=== PATIENT | female | born 1955 | race Caucasian/White ===

== ENCOUNTER → 2017-03-29 | Outpatient (CLI) | payer OTHER ==
[~2017-03-29] MED LIST: ADVA100A INH; ALBU1AER INH; ALBUAER3 INH; AMLO5TAB2 PO; ASPI81TA21 PO; FEXO60TA PO; FLUT1INH INH; FLUT1SPR5 EACH NARE; LOSA25TA31 PO; OMEP20CA5 PO; OMEP20TA93 PO; OXYC1TAB63 PO
--- NOTE | 2017-03-29 11:34 | RADRPT ---
EXAM DATE/TIME: 03/29/2017 11:17 [facility] COMPARISON: No previous studies available for comparison. INDICATIONS : Evaluate for pneumonia, pneumonia, and communicable diseases. Pre-op Hysterectomy MEDICAL HISTORY : Hypertension. SURGICAL HISTORY : None. ENCOUNTER: Initial ACUITY: 1 day PAIN SCORE: 0/10 LOCATION: chest FINDINGS: PA and lateral views of the chest demonstrate the lungs to be symmetrically aerated without evidence of mass, infiltrate or effusion. The cardiomediastinal contours are unremarkable. Osseous structure s are intact. CONCLUSION: No acute disease. Giuseppe Bartlett Jr., MD on March 29, 2017 at 11:32 Board Certified Radiologist. This report was verified electronically.
[2017-03-29 11:55] LABS: AUTOMATED NEUTROPHIL # 5.7 TH/MM3 (1.8-7.7); BASOPHIL # 0.1 TH/MM3 (0-0.2); BASOPHIL % 0.8 % (0.0-2.0); EOSINOPHIL # 0.4 TH/MM3 (0-0.4); EOSINOPHIL % 4.5 % (0.0-4.0); HEMATOCRIT 45.1 % (35.0-46.0); HEMO FLAGS DIFF FINAL; LYMPH % 19.8 % (9.0-44.0); LYMPHOCYTE # 1.7 TH/MM3 (1.0-4.8); MEAN CORPUSCULAR HEMOGLOBIN 32.6 PG (27.0-34.0); MONO % 8.1 % (0.0-8.0); NEUT % 66.8 % (16.0-70.0); PLATELET COUNT 284 TH/MM3 (150-450); RED CELL DISTRIBUTION WIDTH 12.7 % (11.6-17.2); WHITE BLOOD COUNT 8.5 TH/MM3 (4.0-11.0)
[2017-03-29 12:06] LABS: APTT (PATIENT) 27.3 SEC (24.3-30.1); PROTHROMBIN TIME - PATIENT 10.7 SEC (9.8-11.6)
[2017-03-29 12:24] LABS: ANION GAP 7 MEQ/L (5-15); AST (GOT) 21 U/L (15-37); BICARBONATE 28.7 MEQ/L (21.0-32.0); BLOOD UREA NITROGEN 15 MG/DL (7-18); CHLORIDE 104 MEQ/L (98-107); GLOMERULAR FILTRATION RATE 66 ML/MIN (>89); GLUCOSE,FASTING 92 MG/DL (74-99); POTASSIUM 3.7 MEQ/L (3.5-5.1); SODIUM (NA) 140 MEQ/L (136-145)
[2017-03-29 12:27] LABS: ALKALINE PHOSPHATASE 102 U/L (45-117); ALT (GPT) 27 U/L (10-53); TOTAL BILIRUBIN ADULT 0.5 MG/DL (0.2-1.0)
--- NOTE | 2017-03-30 18:10 | EKG ---
Date Performed: 03/29/2017 Time Performed: 10:46:17 PTAGE: 62 years EKG: Sinus rhythm Since previous tracing, no significant change noted NORMAL ECG PREVIOUS TRACING : 12/18/2016 11.07.32 DOCTOR: Sharon Montalvo Interpretating Date/Time 03/30/2017 18:08:30
== END ==
LOC: CPRE 10:26
PROVIDERS: ATTEND Obstetrics & Gynecology Gynecologic Oncology
DX: Z01.812 Encounter for preprocedural laboratory examination (principal); Z01.811 Encounter for preprocedural respiratory examination; Z01.810 Encounter for preprocedural cardiovascular examination; C54.1 Malignant neoplasm of endometrium; I10 Essential (primary) hypertension
CPT/HCPCS: 36415; 71020; 80053; 85025; 85610; 85730; 93005

== ENCOUNTER 2017-04-05 05:06 | Observation (INO) | payer OTHER ==
[~2017-04-05] VITALS: Ht 167.6 cm; Wt 84.8 kg
[~2017-04-05 05:06] MED LIST changes: -OXYC1TAB63 PO
[2017-04-05] MEDS ORDERED: METOPROLOL TARTRATE 25 MG TAB PO PRN (05:45)
[2017-04-05] MEDS ORDERED: CHLORHEXIDINE GLUCONATE 2 % 1 PACK (2 CLOTHS) TOPICAL PRN (05:45)
[2017-04-05] MEDS ORDERED: SODIUM CHLORID 0.9% 500 ML IV PRN (05:45)
[2017-04-05] MEDS ORDERED: SODIUM CHLORIDE FLUSH PRN IV FLUSH (05:45)
[2017-04-05] MEDS ORDERED: ceFAZolin 2 GM PREMIX 50 ML IV SCH (05:45)
[2017-04-05] MEDS ORDERED: LACTATED RINGER'S 1000 ML IV PRN (05:45)
[2017-04-05] MEDS ORDERED: HEPARIN SODIUM - SQ 10,000 UNITS/ML VIAL SQ SCH (05:45)
[2017-04-05] MEDS ORDERED: POVIDONE IODINE 5% (ANTISEPSIS KIT) 4 APPLICATIONS EACH NARE PRN (05:45)
[2017-04-05] MEDS ORDERED: LIDOCAINE 1%/EPINEPHrine 1:100,000 SOLN 20 ML VIAL INFIL ONE (08:41)
[2017-04-05] MEDS ORDERED: SODIUM CHLORIDE FLUSH BID IV FLUSH SCH (09:00)
[2017-04-05] MEDS ORDERED: SUGAMMADEX SODIUM 200 MG/2 ML VIAL IV PUSH ONE ×2 (10:57)
[2017-04-05] MEDS ORDERED: METHYLENE BLUE 10 MG/ML VIAL OTHER ONE ×2 (11:05→11:24)
[2017-04-05] MEDS ORDERED: ceFAZolin INJ 1,000 MG VIAL IV ONE ×3 (11:41→12:00)
[2017-04-05] MEDS ORDERED: NORMOSOL R INJ 1,000 ML IV ONE (12:00)
[2017-04-05] MEDS ORDERED: PROPOFOL 200 MG/20 ML AMP IV ONE (12:00)
[2017-04-05] MEDS ORDERED: GLYCOPYRROLATE 1 MG/5 ML SYRINGE IV PUSH ONE (12:00)
[2017-04-05] MEDS ORDERED: MORPHINE SULFATE 4 MG/ML INJ IV ONE (12:00)
[2017-04-05] MEDS ORDERED: ePHEDrine/NS 25 MG/5 ML SYR IV ONE (12:00)
[2017-04-05] MEDS ORDERED: PHENYLEPH/NS 1000 MCG/10 ML SYR IV ONE (12:00)
[2017-04-05] MEDS ORDERED: ROCURONIUM INJ 50 MG/5 ML SYRINGE IV PUSH ONE (12:00)
[2017-04-05] MEDS ORDERED: ESMOLOL HCL 100 MG/10 ML VIAL IV ONE (12:00)
[2017-04-05] MEDS ORDERED: LACTATED RINGER'S 1000 ML INJ 2,000 ML IV ONE (12:00)
[2017-04-05] MEDS ORDERED: ONDANSETRON HCL 4 MG/2 ML VIAL IV PUSH ONE (12:00)
[2017-04-05] MEDS ORDERED: SODIUM CHLORIDE 0.9% 20 ML VIAL IV ONE (12:00)
[2017-04-05] MEDS ORDERED: DEXAMETHASONE SOD PHOS 4 MG/ML VIAL IV ONE (12:00)
[2017-04-05] MEDS ORDERED: LIDOCAINE HCL 1% PF 5 ML SYRINGE OTHER ONE (12:00)
[2017-04-05] MEDS ORDERED: METOPROLOL TARTRATE 5 MG/5 ML VIAL IV PUSH ONE (12:00)
[2017-04-05] MEDS ORDERED: PHENYLEPHRINE HCL 10 MG/ML VIAL IV ONE (12:00)
[2017-04-05] MEDS ORDERED: VECURONIUM BROMIDE 20 MG VIAL IV ONE (12:00)
[2017-04-05] MEDS ORDERED: SODIUM CHLORIDE 0.9% FLUSH 10 ML FLUSH IV FLUSH PRN (12:15)
[2017-04-05] MEDS ORDERED: LORazepam 0.5 MG TAB PO PRN (12:15)
[2017-04-05] MEDS ORDERED: ONDANSETRON HCL 4 MG/2 ML VIAL IVP PRN (12:15)
[2017-04-05] MEDS ORDERED: oxyCODONE/ACETAMINOPHEN 5 MG/325 MG TAB PO PRN (12:15)
[2017-04-05] MEDS ORDERED: diphenhydrAMINE HCL 25 MG CAP PO PRN (12:15)
[2017-04-05] MEDS ORDERED: *morphine SULFATE 8 MG/ML PERIprocedure ONLY ONE ×2 (12:40→15:14)
[2017-04-05] MEDS ORDERED: DO NOT ADM ANY ANTICOAGULANT DRUGS PRN (14:15)
[2017-04-05] MEDS: D5-1/2 NS + KCL 20 MEQ INJ 1,000 ML IV SCH (14:30)
[2017-04-05] MEDS: KETOROLAC TROMETHAMINE 30 MG/ML (IVP) VIAL IVP SCH ×2 (14:59→21:37)
[2017-04-05] MEDS: RESP: ALBUTEROL 2.5 MG/3 ML NEB (SCH) NEB ×3 (15:00→20:05)
[2017-04-05] MEDS ORDERED: LORATADINE 10 MG TAB PO PRN (15:00)
[2017-04-05 15:50] VITALS: BP 109/68; PULSE 80; RESP 20; TEMP 98.4; O2SAT 96
--- NOTE | 2017-04-05 15:56 | PD.ONC.PN ---
Subjective Subjective Remarks post op note pt seen in PACU no complaints awaiting bed states pain is controlled and she is going to start taking in ice chips Objective Data Date Time Temp Pulse Resp B/P (MAP) Pulse Ox O2 Delivery O2 Flow Rate FiO2 04/05/17 14:30 90 12 115/62 (79) 97 Nasal Cannula 2 04/05/17 13:46 14 04/05/17 13:30 98.2 87 12 110/56 (74) 95 Nasal Cannula 2 04/05/17 13:00 89 14 119/59 (79) 95 Nasal Cannula 2 04/05/17 12:45 88 16 119/59 (79) 96 Nasal Cannula 2 04/05/17 12:30 96 16 123/62 (82) 97 Nasal Cannula 2 04/05/17 12:15 100 16 125/68 (87) 97 Nasal Cannula 2 04/05/17 12:14 98.2 101 18 121/60 (80) 97 Nasal Cannula 2 04/05/17 06:36 98.3 75 20 125/82 (96) 99 04/05/17 04/05/17 04/05/17 07:00 15:00 23:00 Intake Total 1800 ml 200 ml Output Total 500 ml 250 ml Balance 1300 ml -50 ml Administered Medications Medications (Trade) Dose Ordered Sig/Elysia Route PRN Reason Start Time Stop Time Status Last Admin Dose Admin Lactated Ringer's 1,000 ml @ 30 mls/hr Q24H PRN IV SEE LABEL COMMENTS 04/05/17 05:45 04/08/17 05:44 04/05/17 06:15 Povidone Iodine (Betadine 5% Antisepsis Kit) 1 applic PAINTER BARREL PRN EACH NARE SEE LABEL COMMENTS 04/05/17 05:45 04/08/17 05:44 04/05/17 06:45 Chlorhexidine Gluconate (Chlorhexidine 2% Cloth) 3 pack PAINTER BARREL PRN TOPICAL SEE LABEL COMMENTS 04/05/17 05:45 04/08/17 05:44 04/05/17 05:30 Heparin Sodium (Porcine) (Heparin Inj) 5,000 units PAINTER BARREL SQ 04/05/17 05:45 04/05/17 21:00 04/05/17 06:46 Cefazolin Sodium/ Dextrose 50 ml @ 100 mls/hr PAINTER BARREL IV 04/05/17 05:45 04/05/17 21:00 04/05/17 07:06 Albuterol Sulfate (Albuterol Neb) 2.5 mg Q4HR NEB NEB 04/05/17 14:45 04/06/17 12:00 04/05/17 15:00 Potassium Chloride/Dextrose/ Sod Cl 1,000 ml @ 100 mls/hr Q10H IV 04/05/17 15:00 04/05/17 14:30 Ketorolac Tromethamine (Toradol Inj) 15 mg Q6H IVP 04/05/17 15:00 04/06/17 09:01 04/05/17 14:59 Objective Remarks GENERAL: Well-nourished, well-developed patient. SKIN: Warm and dry. HEAD: Normocephalic. EYES: No scleral icterus. No injection or drainage. CARDIOVASCULAR: Regular rate and rhythm without murmurs. RESPIRATORY: Breath sounds equal bilaterally. No accessory muscle use. GASTROINTESTINAL: Abdomen soft, SS are C/D/I no drainage EXTREMITIES: No cyanosis, or edema. MUSCULOSKELETAL: Adequate muscle tone. NEUROLOGICAL: No obvious focal deficit. Awake, alert, and oriented x3. PSYCHIATRIC: Appropriate mood and affect; insight and judgment normal. Assessment/Plan Problem List: (1) Post-operative state ICD Codes: Z98.890 - Other specified postprocedural states Status: Acute Plan: s/p RA lap hyst with BSO and PLN bx orders per EMR ADAT dunham to straight drain OOB to chair IS to bedside anticipate discharge home in morning. Yohannes Helton Apr 05, 2017 15:56
[2017-04-05 17:34] VITALS: O2SAT 97
[2017-04-05 19:41] VITALS: BP 108/62; PULSE 82; RESP 18; TEMP 97.7; O2SAT 96
[2017-04-05 20:05] VITALS: O2SAT 96
[2017-04-05] MEDS ORDERED: SODIUM CHLORIDE 0.9% FLUSH 10 ML FLUSH IV FLUSH SCH (21:00)
[2017-04-06 00:10] VITALS: BP 99/63; PULSE 83; RESP 18; TEMP 98; O2SAT 95
[2017-04-06] MEDS: RESP: ALBUTEROL 2.5 MG/3 ML NEB (SCH) NEB ×3 (00:14→09:10)
[2017-04-06] MEDS: D5-1/2 NS + KCL 20 MEQ INJ 1,000 ML IV SCH (00:18)
[2017-04-06] MEDS: KETOROLAC TROMETHAMINE 30 MG/ML (IVP) VIAL IVP SCH ×2 (02:44→09:00)
[2017-04-06] MEDS: oxyCODONE/ACETAMINOPHEN 5 MG/325 MG TAB PO PRN ×2 (03:19→04:50)
[2017-04-06 04:30] VITALS: BP 119/88; PULSE 84; RESP 18; TEMP 97.8; O2SAT 94
[2017-04-06 05:56] LABS: AUTOMATED NEUTROPHIL # 9.5 TH/MM3 (1.8-7.7); BASOPHIL % 0.1 % (0.0-2.0); EOSINOPHIL % 0.1 % (0.0-4.0); HEMATOCRIT 35.9 % (35.0-46.0); HEMO FLAGS DIFF FINAL; LYMPH % 12.6 % (9.0-44.0); LYMPHOCYTE # 1.5 TH/MM3 (1.0-4.8); MEAN CELL VOLUME 95.3 FL (80.0-100.0); MEAN CORPUSCULAR HEMOGLOBIN 32.5 PG (27.0-34.0); MEAN CORPUSCULAR HGB CONC 34.1 % (32.0-36.0); MONO % 8.3 % (0.0-8.0); NEUT % 78.9 % (16.0-70.0); PLATELET COUNT 221 TH/MM3 (150-450); RED BLOOD COUNT 3.77 MIL/MM3 (4.00-5.30); RED CELL DISTRIBUTION WIDTH 12.6 % (11.6-17.2); WHITE BLOOD COUNT 12.1 TH/MM3 (4.0-11.0)
[2017-04-06] MEDS ORDERED: OXYC1TAB63 PO (06:18)
[2017-04-06 06:24] LABS: BICARBONATE 25.4 MEQ/L (21.0-32.0); POTASSIUM 3.5 MEQ/L (3.5-5.1)
[2017-04-06 08:00] VITALS: BP 121/70; PULSE 80; RESP 18; TEMP 97.8; O2SAT 96
[2017-04-06] MEDS ORDERED: amLODIPine BESYLATE 5 MG TAB PO SCH (09:00)
[2017-04-06] MEDS ORDERED: FLUTICASONE 100 MCG/VILANTEROL 25 MCG INHALER INH SCH (09:00)
[2017-04-06] MEDS ORDERED: PANTOPRAZOLE SOD 20 MG DELAYED RELEASE TAB PO SCH (09:00)
[2017-04-06] MEDS ORDERED: FLUTICASONE PROPIONATE 50 MCG/ACT 16 GM NASAL SPRAY NASAL SCH (09:00)
--- NOTE | 2017-04-06 12:54 | MP ---
cc: PREET LOWE KELLY L. MD DATE OF SURGERY: 04/05/2017 PREOPERATIVE DIAGNOSIS: Endometrial adenocarcinoma. POSTOPERATIVE DIAGNOSIS: Endometrial adenocarcinoma. Extensive intraperitoneal and pelvic adhesions. OPERATION: Robotic assisted laparoscopic hysterectomy, bilateral salpingo-oophorectomy, extensive laparoscopic and robotic lysis of adhesions. SURGEON: Jesenia Leyva MD BRAKE PRESS OPERATOR: Jeremias assistant family teacher. ANESTHESIA: General endotracheal anesthesia ESTIMATED BLOOD LOSS 200 CC IV FLUIDS 1800 cc. OUTPUT 300 cc HISTORY 62-year-old female reports approximately 3-week history of postmenopausal bleeding for which she sought evaluation straightaway underwent endometrial biopsy which showed a grade 2 endometrial cancer. She was seen and evaluated presented with options. She was in favor of surgical management understanding that it was anticipated increased complexity given her prior exploratory laparotomy with colon resection due to an inflammatory condition of the bowel so that she is counseled regarding the anticipated lysis of adhesions and increased risk of possible exploratory laparotomy. She is seen again in preop holding area with findings are again reviewed. She is counseled questions were asked and answered. She is certain that she wishes to move forward with surgery. FINDINGS: In the peritoneal cavity the omentum was adherent to the anterior abdominal wall essentially in all four quadrants. There were some adhesions also loosely fixing loops of small bowel as well as elevating the transverse colon near the abdominal wall In the pelvis the left adnexa with retroperitonealized, the colon was fixed overlying the adnexa and against left pelvic sidewall and cul-de-sac was obliterated the right side. The adnexa were fixed to the right pelvic sidewall and with the bands of adhesions to the sigmoid colon. There was no overt evidence of malignancy. Despite all the adhesions. The omentum otherwise grossly appeared normal. Peritoneal surfaces were smooth. There were no appreciably enlarged pelvic or para-aortic lymph nodes. The uterus once removed was inspected the endometrial cancer was approximately 2 cm in diameter appeared to be only superficially invasive with an estimated invasion of only approximately 1 mm. STATEMENT OF COMPLEXITY/MODIFIER; It is estimated that between 1 1/2 to 2 hours of the total operative time was spent lysing extensive, widespread adhesions. Initially this was done laparoscopically to gain access to the peritoneal cavity to reestablish normal anatomy. And then additional robotic lysis of adhesions in the pelvis to restore normal anatomy and accomplish surgical objectives. Modifier should be applied accordingly. PROCEDURE She was taken to the operating room placed in dorsal lithotomy position after general endotracheal anesthesia was administered time-out was undertaken to identified by sight recognition and hospital ID antoinette and the proposed procedure was reviewed and confirmed. She was carefully positioned in padded Tu stirrups. Her arms were padded and secured to the sides. She was further secured to the operating table with egg crate padding and tape in across chest over the shoulder fashion. All sites noted to be properly aligned with no malalignments or pressure points. She was prepped and draped sterile fashion, placed in high lithotomy position. The cervix was grasped, uterine cavity was sounded to approximately 8 cm and a standard Vcare manipulator was inserted and secured usual fashion after the cervix and dilated. Burch catheter placed in the bladder. She was returned to low lithotomy position. It is noted that prior to securing the Vcare manipulator an abnormal-appearing area on the 6 o'clock position of the cervix was noted and biopsied sent for frozen section analysis which came back benign endocervical tissue. Change of sterile gloves was undertaken. We completed draping in anticipation of laparoscopy confirmed that an orogastric tube was in the stomach on suction. She had a previous [id number] abdominal exploratory laparotomy for colon resection. The site which chosen supine lateral of the left upper quadrant away from her prior surgery, for all laparoscopic entry and with manual elevation of the abdominal wall and direct laparoscopic visualization. A 5 mm cannula was introduced safely in an atraumatic fashion. Carbon dioxide gas was insufflated. There was a window of opportunity in the midline. High, just below the falciform ligament and 12 mm cannula was introduced and blunt and sharp dissection were then used to initiate taken down the omentum from the anterior abdominal wall to initiate lysis of adhesions. This was continued and carried out until the abdominal wall was free of adhesions allowing 8-mm cannula to be placed in the right upper quadrant and 8 mm cannula to be placed in the left lateral quadrant and the original 5-mm exchanged for a 8-mm cannula. Now direction was toward lysing adhesions below the umbilicus and the abdomen and continued blunt and sharp dissection were used to carry out lysis of adhesions. Cautery was used isolated for small bleeders after the dissection was carried out until the omentum was completely free from its attachments to the anterior abdominal wall. The distal edge of the omentum was freed from its attachments in the pelvis. Robotic system was brought into service. She was placed in Trendelenburg position. Peritoneal washings were obtained for cytology. The anatomy was explored with findings as described above. Three Ray-Tate sponges were placed around the root of the small bowel mesentery. She was placed in steep Trendelenburg position and a small bowel was folded back on its mesenteric root to the extent possible but there was still adhesions precluded mobility and as was the case now and throughout the entire case there was active uterus peristalsis of the small bowel despite all steps taken by anesthesia to try to suppress that, which remained additional technical challenge. The robotic system was brought in and attached in the usual fashion. Monopolar scissors, fenestrated bipolar forceps and progressed manipulators were placed in arms #one, two and three respectively when I took my place at the surgeon's console. Dissection was initiated the left pelvis where the adhesions were most severe retroperitoneal dissection was carried out lateral to the colon mobilize the colon the left round ligament was identified, isolated, cauterized and transected. Adhesions were freed up from the cul-de-sac. The colon adhesions were from the adnexa and dissection was carried above the pelvic brim where the ovary and fallopian tube had been flipped back on itself and stuck to the pelvic sidewall behind the colon. Sharp dissection was continued until the structures could be identified and . Retroperitoneal dissection allowed identification of the left ureter and the left infundibulopelvic ligament was isolated. The intervening peritoneum was opened. The infundibulopelvic ligament was isolated to the level of pelvic brim where it was cauterized and transected. More adhesions were taken down from the posterior cul-de-sac posterior peritoneum was opened as the peritoneum was dissected off the left side of the uterus and cervix and the left vesicouterine peritoneum was dissected off the lower uterine segment and cervix and left uterine vessels were skeletonized. Attention was directed toward the right side where lysis of adhesion were initiated. The right round ligament was isolated, cauterized, transected. The anterior and posterior leafs of the broad ligament were opened. Sharp dissection was used to mobilize the right tube and ovary from the fixation against the pelvis and sigmoid colon until the tube and ovary could be elevated and isolated. The right ureter was identified. The right infundibulopelvic ligament was isolated. The intervening peritoneum was opened. The infundibulopelvic ligament was isolated to the level of the pelvic brim, it was cauterized and transected. Posterior peritoneum was opened along the right side of the uterus and cervix and the right vesicouterine peritoneum was dissected off the lower uterine segment and cervix. The right uterine vessels were skeletonized. Right uterine vessels were now cauterized and transected as were the cardinal paracervical and uterosacral ligaments in a stepwise fashion until all attachments along the right-sided been completed, had been . Our attention was directed to the left side, the left uterine vessels were now cauterized and transected as were the cardinal paracervical and uterosacral ligaments thereby freeing attachments along the left side of uterus and cervix. Circumferential colpotomy was carried out the cervix from the upper vagina. The specimen was removed trans vaginally which included uterus, cervix, bilateral tubes and ovaries which were withdrawn trans vaginally and a pneumo occluder, balloon was placed in the vagina to maintain pneumoperitoneum. Instruments one and three exchanged for needle drivers as 0 Vicryl suture was introduced, vaginal cuff was closed starting at the left corner full-thickness closure including posterior uterosacral ligament, posterior peritoneum tied via instrument tie. The suture was held on countertraction as a running full-thickness continuous closure was carried across the vaginal apex to the contralateral corner where similarly fixed secured tied via instrument tie. The needle was cut and removed. Pelvis was thoroughly irrigated. Small bleeders rendered hemostatic bipolar cautery, hemostatic Surgicel powder was placed across the vaginal cuff lateral pelvic sidewalls. The left upper quadrant where there had been some oozing on the omentum all sites were hemostatic. The pathology came back with findings as described above. It is therefore felt that all reasonable surgical objectives had been completed. Robotic instruments were removed. The robotic system was disengaged from the operative field and I reentered the bedside under sterile condition. Each of the three Ray-Tate sponges that had placed in the perineal cavity were removed individually each were inspected noted to be removed in their entirety. There were no remaining foreign objects in the peritoneal cavity. Preliminary counts were correct. A 12-mm fascial the fascia defect was closed with 0 Vicryl suture using a needle pass fascia closure apparatus and tied securely which rendered the fascia completely airtight and hemostatic remaining cannulas were withdrawn. Carbon dioxide gas was removed from the peritoneum, 3-0 Vicryl subcutaneous 3-0 Vicryl subcuticular and Steri-Strips were used to close these incisions. She was returned to dorsal lithotomy position. Pelvic: Exam confirmed the vaginal cuff was well supported hemostatic. There were no remaining foreign objects in the vagina. No vaginal lacerations. Superficial irritation at the introitus rendered hemostatic with the remaining Surgicel hemostatic powder topical silver nitrate. Final counts were correct. She was returned to dorsal supine position and pending reversal of anesthesia when I left the operating room to precede her to the Post Anesthesia Care Unit. MD KALI Madrigal/[place] /8:38 AM /11:31 AM MTDJoanna
--- NOTE | 2017-04-06 22:24 | MD ---
cc: JERRY OVIEDO MD ADMISSION DATE: 04/05/2017 DISCHARGE DATE: 04/06/2017 PROCEDURE 04/05/2017 - robotic-assisted laparoscopic hysterectomy, bilateral salpingo-oophorectomy, extensive lysis of adhesions. DIAGNOSIS Endometrial cancer. HOSPITAL COURSE She did well in the early postop period, hemodynamically stable. Ins and outs 3428/1150. LABORATORY DATA H&H 12.3 and 35.9. Electrolytes pending at the time of this dictation. PHYSICAL EXAMINATION VITAL SIGNS: Afebrile, pulse 82-92, respirations 12-20, blood pressure 99-109 over 58-68, O2 saturations greater than or equal to 95%. GENERAL: Alert and oriented x3. LUNGS: Clear except for mild rales at the bases. CARDIOVASCULAR: Regular rate and rhythm. ABDOMEN: Soft. Incisions clean and dry. RIVER CROSSING SUPERVISOR: No bleeding. EXTREMITIES: Nontender. ASSESSMENT Postop day #1 Findings steps taken at surgery and preliminary pathology reviewed, activities and restrictions discussed. Questions were asked and answered. She expressed good understanding. PLAN Anticipate discharge to home today. She is to resume prior medications and will have a prescription for Percocet. She is to contact our office to schedule follow up within 2 weeks and our office number is made available should she have any questions or problems between now and the time of scheduled followup. MD KALI Madrigal/ /6:19 AM /10:09 PM
== END 2017-04-06 10:28 | disposition home or self-care (01) ==
LOC: HSDC 05:06 → HSDI 12:04 → H1EA 15:39
PROVIDERS: ADMIT Obstetrics & Gynecology Gynecologic Oncology; ATTEND Obstetrics & Gynecology Gynecologic Oncology
DX: C54.1 Malignant neoplasm of endometrium (principal); N73.6 Female pelvic peritoneal adhesions (postinfective); I10 Essential (primary) hypertension; J45.909 Unspecified asthma, uncomplicated; J43.9 Emphysema, unspecified; K58.9 Irritable bowel syndrome, unspecified
CPT/HCPCS: 00840; 58571; 80048; 85025; 86850; 86900; 86901; 88112; 88305; 88309; 88331; 94150; 94640; 94664; 96374; 96375; 96376; G0378; J0690; J1100; J1644; J1885; J2270; J2370; J2405; J3010; J3480; J7120; J7613; S2900; 88307

== ENCOUNTER 2017-05-13 10:28 | Inpatient (IN) | payer OTHER ==
[~2017-05-13] VITALS: Ht 177.8 cm; Wt 80.2 kg
[~2017-05-13 10:28] MED LIST changes: -ADVA100A INH; -ALBU1AER INH; -ASPI81TA21 PO; -LOSA25TA31 PO; -OMEP20CA5 PO; +OXYC1TAB63 PO
--- NOTE | 2017-05-13 10:51 | PD ---
HPI Chief Complaint: Abdominal Pain Time Seen by Provider: 10:51 Travel History International Travel<30 days: No Contact w/Intl Traveler<30days: No Traveled to known affect area: No History of Present Illness HPI 62-year-old female came to the emergency room brought by EMS for prolapse of viscus vaginally. Patient says that she had a hysterectomy done by Dr. Leyva on April 05, 2017. Everything was going well since then. This morning she went to have a bowel movement. As per the patient if she did not strain any more than she usually to have a bowel movement and felt some pressure and something coming out from her vaginal area. Since then she was in excruciating pain. When EMS brought her in she was very uncomfortable and moaning in pain. Vital signs were stable. Patient was doing fine just before this happened. PFSH Past Medical History Narrative Medical List of her past medical, surgical, social and family history is reviewed from the nursing note. Arthritis: No Asthma: Yes Autoimmune Disease: No Blood Disorders: No Anxiety: Yes Depression: No Heart Rhythm Problems: No Cancer: Yes (endometrial) Cardiac Catheterization: No Cardiovascular Problems: Yes High Cholesterol: No Chemotherapy: No Chest Pain: No Congestive Heart Failure: No COPD: No Cerebrovascular Accident: No Diabetes: No Diminished Hearing: No Diverticulitis: Yes Endocrine: No GERD: Yes Glaucoma: No Genitourinary: No Headaches: No Hepatitis: Yes (HEP. C-remission) Hiatal Hernia: Yes Hypertension: Yes Immune Disorder: No Implanted Vascular Access Dvce: No Musculoskeletal: No Neurologic: No Psychiatric: Yes Reproductive: No Respiratory: Yes Immunizations Current: Yes Myocardial Infarction: No Pancreatitis: Yes Radiation Therapy: No Renal Failure: No Seizures: No Sickle Cell Disease: No Sleep Apnea: No Thyroid Disease: No Ulcer: No PNEUMOCCOCAL Vaccine (Year): 1 Menopausal: Yes : 5 Para: 3 : 2 Past Surgical History Abdominal Surgery: Yes (colon resection 2010, liver bx) AICD: No Body Medical Devices: NONE Cardiac Surgery: No Coronary Artery Bypass Graft: No Ear Surgery: No Endocrine Surgery: No Eye Surgery: No Genitourinary Surgery: No Gynecologic Surgery: No Joint Replacement: No Oral Surgery: Yes (T & A) Pacemaker: No Thoracic Surgery: No Tonsillectomy: Yes Other Surgery: Yes (18 INCHES OF COLON REMOVED, esophagus sx) Social History Alcohol Use: No Tobacco Use: No (30 years ago) Substance Use: No Allergies-Medications (Allergen,Severity, Reaction): Coded Allergies: ciprofloxacin (Verified Allergy, Severe, DYSPNEA, 04/05/17) Comments List of her allergies reviewed from the nursing note. Reported Meds & Prescriptions Reported Meds & Active Scripts Active Reported Flonase Nasal [place] (Fluticasone Nasal [place]) 50 Mcg/Act [place] 50 Mcg EACH NARE DAILY Omeprazole 20 Mg Tab 20 Mg PO DAILY Amlodipine (Amlodipine Besylate) 5 Mg Tab 5 Mg PO DAILY Breo Ellipta Inh (Fluticasone/Vilanterol) 100-25 Mcg/Act Inh 1 Puff INH DAILY Use daily at the same time. Narrative Medication List of her home medications reviewed from the nursing note. Review of Systems Except as stated in HPI: all other systems reviewed are Neg Physical Exam Narrative GENERAL: Awake, alert, anxious, significant distress SKIN: Focused skin assessment warm/dry. HEAD: Atraumatic. Normocephalic. EYES: Pupils equal and round. No scleral icterus. No injection or drainage. ENT: No nasal bleeding or discharge. Mucous membranes pink and moist. NECK: Trachea midline. No JVD. CARDIOVASCULAR: Regular rate and rhythm. No murmur appreciated. RESPIRATORY: No accessory muscle use. Clear to auscultation. Breath sounds equal bilaterally. GASTROINTESTINAL: Abdomen soft, non-tender, nondistended. Hepatic and splenic margins not palpable. : From the vaginal area is suggestive of a large loop of bowel with peristalsis can be seen prolapsed. Rectum appears to be intact MUSCULOSKELETAL: No obvious deformities. No clubbing. No cyanosis. No edema. NEUROLOGICAL: Awake and alert. No obvious cranial nerve deficits. Motor grossly within normal limits. Normal speech. PSYCHIATRIC: Appropriate mood and affect; insight and judgment normal. Data Data Last Documented VS Vital Signs Date Time Temp Pulse Resp B/P (MAP) Pulse Ox O2 Delivery O2 Flow Rate FiO2 05/13/17 10:55 98.1 87 18 175/82 (113) 98 Room Air Orders Orders Hydromorphone Pf Inj (Dilaudid Pf Inj) (05/13/17 11:00) Ondansetron Inj (Zofran Inj) (05/13/17 11:00) Complete Blood Count With Diff (1/11/18 10:57) Basic Metabolic Panel (Bmp) (05/13/17 10:57) Prothrombin Time / Inr (Pt) (05/13/17 10:57) Urinary Catheter Insert/Apply (05/13/17 11:00) Admit Order (Ed Use Only) (05/13/17 11:00) [facility] Medical Decision Making Medical Screen Exam Complete: Yes Emergency Medical Condition: Yes Medical Record Reviewed: Yes Differential Diagnosis Small intestine prolapse vaginally Narrative Course 11:12 AM patient was immediately medicated for pain since she was very uncomfortable. I discussed the case with Dr. Leyva and he thinks that the incision after hysterectomy disease that may have caused the small intestine to prolapse. He would have to take her to the OR soon. He recommended in the meanwhile to put a Burch catheter and keep her supine and little in Trendelenburg position. Patient has been made nothing by mouth. I've explained all this to the patient and she understands. After the pain medication patient seems a little more comfortable. The nurse currently is attempting to put a Burch catheter in. He would ask his office nurse to come and see the patient in the meanwhile as well. Procedures EKG Prior to Arrival: No Physician Communication Physician Communication Dr. eLyva Diagnosis Primary Impression: Vaginal vault prolapse, posthysterectomy Additional Impression: Prolapse, post-hysterectomy Admitting Information Admitting Physician Requests: Xenia Lopez MD May 13, 2017 10:51
[2017-05-13 10:55] VITALS: BP 175/82; PULSE 87; RESP 18; TEMP 98.1; O2SAT 98
[2017-05-13] MEDS ORDERED: HYDROmorphone HCL PF 2 MG/ML VIAL IV PUSH ONE ×2 (11:00→13:45)
[2017-05-13] MEDS ORDERED: ONDANSETRON HCL 4 MG/2 ML VIAL IV PUSH ONE (11:00)
[2017-05-13 11:58] LABS: AUTOMATED NEUTROPHIL # 6.1 TH/MM3 (1.8-7.7); BASOPHIL # 0.1 TH/MM3 (0-0.2); BASOPHIL % 0.9 % (0.0-2.0); EOSINOPHIL # 0.2 TH/MM3 (0-0.4); EOSINOPHIL % 2.8 % (0.0-4.0); HEMATOCRIT 42.7 % (35.0-46.0); HEMOGLOBIN 14.6 GM/DL (11.6-15.3); LYMPH % 15.8 % (9.0-44.0); LYMPHOCYTE # 1.3 TH/MM3 (1.0-4.8); MEAN CELL VOLUME 94.1 FL (80.0-100.0); MEAN CORPUSCULAR HEMOGLOBIN 32.2 PG (27.0-34.0); MEAN CORPUSCULAR HGB CONC 34.2 % (32.0-36.0); MEAN PLATELET VOLUME 8.6 FL (7.0-11.0); MONO % 7.6 % (0.0-8.0); MONOCYTE # 0.6 TH/MM3 (0-0.9); NEUT % 72.9 % (16.0-70.0); PLATELET COUNT 263 TH/MM3 (150-450); RED BLOOD COUNT 4.54 MIL/MM3 (4.00-5.30); RED CELL DISTRIBUTION WIDTH 12.5 % (11.6-17.2); WHITE BLOOD COUNT 8.4 TH/MM3 (4.0-11.0)
[2017-05-13 12:07] LABS: INTERNATIONAL NORMALIZED RATIO 1.1 RATIO; PROTHROMBIN TIME - PATIENT 10.8 SEC (9.8-11.6)
[2017-05-13 12:14] LABS: BICARBONATE 20.3 MEQ/L (21.0-32.0); CALCIUM 8.6 MG/DL (8.5-10.1); CREATININE 0.89 MG/DL (0.50-1.00)
[2017-05-13] MEDS ORDERED: METRONIDAZOLE 500 MG/100 ML ISONTONIC SOLN IV ONE (13:00)
[2017-05-13] MEDS ORDERED: LEVOFLOXACIN 500 MG PREMIX INJ 100 ML IV ONE (13:00)
--- NOTE | 2017-05-13 13:06 | RADRPT ---
EXAM DATE/TIME: 05/13/2017 12:45 [facility] COMPARISON: No previous studies available for comparison. INDICATIONS : Vaginal prolapse of small intestines. MEDICAL HISTORY : Uterine CA SURGICAL HISTORY : Hysterectomy. ENCOUNTER: Initial ACUITY: 1 day PAIN SCORE: 10/10 LOCATION: Abdomen FINDINGS: Supine view of the abdomen was performed. The abdominal bowel gas pattern is normal. No abnormal ma sses, calcifications, or organomegaly is seen. The osseous structures are unremarkable. CONCLUSION: Normal examination. Sesar Evans MD on May 13, 2017 at 13:03 Board Certified Radiologist. This report was verified electronically.
[2017-05-13 14:01] VITALS: PULSE 88
[2017-05-13] MEDS ORDERED: ACETAMINOPHEN 1000 MG/100 ML 100 ML IV ONE (15:38)
[2017-05-13] MEDS ORDERED: SUGAMMADEX SODIUM 200 MG/2 ML VIAL IV PUSH ONE (15:38)
--- NOTE | 2017-05-13 16:41 | MH ---
cc: RENEE PURCELL KELLY L. MD GIERBOLINI, JOSE R. M.D. DATE OF ADMISSION: 05/13/2017 REASON FOR EMERGENCY ROOM PRESENTATION 1. Vaginal cuff separation with small bowel evisceration. 2. Onset acute. 3. Recent history of endometrial cancer. HISTORY OF PRESENT ILLNESS This is a 62-year-old female who underwent robotic-assisted laparoscopic hysterectomy, bilateral salpingo-oophorectomy, extensive lysis of adhesions on April 06, 2017 (between 5 and 6 weeks ago). She was doing well when we saw her for her postop check and has essentially been doing well until earlier this morning. Her routine had been such that she was feeling well. She was getting ready this morning to go to the gym. She says that she was not doing any weight resistance training but she had been doing treadmill and she has also been doing elliptical but she denied any pain, there has not been any bleeding, vaginal discharge. She has not had fevers. She has struggled with constipation and she did have some symptoms suggestive of urinary tract infection previously. She was treated with Septra. The symptoms improved. The urinalysis was unremarkable. Her most recent history is such that this morning she had a small bowel movement, a few hours later felt that she needed to go to the bathroom again. By her report stated that she pushed down very hard because she felt the sense of pressure, felt like she needed to move her bowels but was unable to go and upon pushing really hard she felt sudden and intense pain and it shot up from her pelvis to her abdomen and she could feel a palpable bulge in the top of her vagina when she went to clean herself after using the restroom. She was brought to the emergency room by EMS where she was seen and evaluated by Dr. Asif, who reports on exam there were some visible loops of bowel at the vaginal apex, suggestive of a vaginal cuff separation with some evisceration. We had discussion, we agreed to keep her in Trendelenburg, IV fluids were started. She was given antibiotics, labs were obtained. She was determined to be hemodynamically stable. She was given some pain medication, medication for anxiety. She was counseled initially by our office nurse (Sherrie Mckeon) in addition to the emergency room staff as I was scrubbed in surgery but we notified the operating room that we would need to add her to surgery urgently for surgical repair. She was transferred down to the PACU which is acting as a preop holding area where she is seen and the aforementioned findings are summarized, reviewed and discussed. PAST MEDICAL HISTORY 1. Asthma. 2. Diverticulitis. 3. Hypertension. 4. Inflammatory bowel disease. 5. History of endometrial cancer. 6. Emphysema with some fibrosis. PAST SURGICAL HISTORY 1. Endometrial cancer. 2. Hysterectomy approximately 5-6 weeks ago. 3. Tonsillectomy. 4. Prior colon resection in 2010 because of severe diverticulitis. 5. Liver biopsy in 1996. FAMILY HISTORY Noncontributory. SOCIAL HISTORY Mrs. Carter is . She is not a current smoker and in fact it has been 30 years since she smoked. GYNECOLOGIC HISTORY Recent diagnosis of grade 2 endometrial cancer, stage IA, for which surveillance follow-up was recommended with no additional treatment. She has had 8 prior pregnancies, three births. She believes she did not go to menopause until 55. ALLERGIES She reports allergies to METFORMIN AND CIPROFLOXACIN. Upon further questioning she states that she has taken Cipro before that upset her stomach, caused nausea and she even recalls an episode of emesis but she was given a dose of Levaquin I believe in the emergency room which she tolerated without difficulty IV. She did receive some antinausea medicine. She denies ever having any systemic symptomatology. No rash, no chills, no swelling such that it sounds like Levaquin would be a safe medicine for her, understanding that if it does cause significant nausea we can consider making change but there is no systemic allergy. CURRENT MEDICATIONS 1. Amlodipine. 2. Breo Ellipta. 3. Fluticasone propionate. 4. Omeprazole. 5. Ventolin. REVIEW OF SYSTEMS As per history of present illness. LABORATORY DATA Hemoglobin/hematocrit 14.6 and 42.5. White count is 8.4, platelet count 263. Electrolytes show potassium of 3.5. Carbon dioxide is a bit low at 20.3, BUN and creatinine are 14 and 0.89, glucose slightly elevated at 148. IMAGING STUDIES Portable x-ray of the abdomen was obtained which was interpreted as normal bowel gas pattern, no obvious obstruction, no significant measurable free air at the time of imaging. PHYSICAL EXAMINATION VITAL SIGNS: She is afebrile, temperature 98.1, pulse 87, respirations 18, blood pressure 175/82, O2 saturations 98%. GENERAL: She is in slight Trendelenburg position, there is a moist pack over the perineum and she is on protective pad. She denied any known active bleeding. The pain in her abdomen and pelvic area have markedly improved. She is alert and oriented x3. She is in no acute distress. HEART: Heart sounds as such that there is a regular rate and rhythm. LUNGS: Lungs are clear at the apices, perhaps slight rales at the bases, otherwise clear. ABDOMEN: Her abdomen is nonacute. She tolerates exam without tenderness. Bowel sounds are present, hypoactive. Her recent laparoscopic incisions are healing very well. BACK: Without CVA tenderness or spinal point tenderness. PELVIC: Pelvic exam will be deferred until examination under anesthesia. EXTREMITIES: Nontender. No palpable cords. Time is spent in discussion with her summarizing in more detail the findings. I am sorry she is having this problem. I know that is a very scary, anxiety provoking event. Normally the vaginal cuff tissues have healed well at the 5 to 6 week darwin. The Vicryl sutures that we use are such that they tend to be dissolving or dissolved this far out after surgery which is their role as the tissue is generally healed by this time. For whatever reason or number of reasons, she may not have healed completely and a strong Valsalva with bowel movement was enough to separate the vaginal cuff, which had incompletely healed and caused the separation and with that the pressure some small bowel visible at the opening at the top of the vagina and causing likely air into the peritoneal cavity that has caused the pain as well as the referred pain from the vaginal cuff separation as well. Our plan is for exam under anesthesia to attempt a transvaginal repair, to surgically re-close the vaginal cuff. However, because of her healing delays this time we will use suture that has a much longer half-life and will likely use interrupted [id number] PDS sutures which has a much longer half-life than Vicryl, to help assist in whatever factors are present that are delaying her capacity to heal. If we are not able to reduce the bowel by putting her under general anesthesia and put her in steep Trendelenburg or if there is something more significant noted that cannot be addressed transvaginally, then we may need to convert to laparoscopy or even laparotomy. We compared and contrasted the recovery times from those various surgical approaches. It is also emphasized that she stay with antibiotics for 1-2 weeks after the procedure given the possibility of contamination from the vaginal kori and she expressed good understanding and agrees to move forward. ASSESSMENT 1. Approximately 5-1/2 weeks status post robotic hysterectomy, extensive lysis of adhesion for a stage IA, grade 2 endometrial cancer. 2. Acute onset vaginal vault separation with some small bowel visible through the apex with acute onset earlier today. 3. Extensive discussion. PLAN Exam under anesthesia with attempted transvaginal repair of vaginal cuff, reduction of the intestinal content, possible laparoscopy, possible laparotomy. MD KALI Madrigal/DARELL /3:28 PM /4:00 PM
[2017-05-13] MEDS: D5-1/2 NS + KCL 20 MEQ INJ 1,000 ML IV SCH (18:00)
[2017-05-13] MEDS ORDERED: DO NOT ADM ANY ANTICOAGULANT DRUGS PRN (18:04)
[2017-05-13] MEDS ORDERED: *ONDANSETRON 4 MG VIAL PERIprocedural Use ONLY ONE (18:06)
[2017-05-13] MEDS ORDERED: *morphine SULFATE 10 MG/ML PERIprocedure ONLY ONE (18:06)
[2017-05-13] MEDS ORDERED: ONDANSETRON HCL 4 MG/2 ML VIAL IVP PRN (18:15)
[2017-05-13] MEDS ORDERED: LORazepam 0.5 MG TAB PO PRN (18:15)
[2017-05-13] MEDS ORDERED: SODIUM CHLORIDE 0.9% FLUSH 10 ML FLUSH IV FLUSH PRN (18:15)
[2017-05-13] MEDS ORDERED: diphenhydrAMINE HCL 25 MG CAP PO PRN (18:15)
[2017-05-13] MEDS ORDERED: oxyCODONE/ACETAMINOPHEN 5 MG/325 MG TAB PO PRN (18:15)
[2017-05-13] MEDS ORDERED: *diphenhydrAMINE HCL 50 MG/ML VIAL PERIprocedural Use ONLY ONE (18:31)
[2017-05-13] MEDS ORDERED: *HYDROmorphone PF 1 MG VIAL PERIprocedural Use ONLY ONE ×2 (18:31→22:52)
[2017-05-13] MEDS: KETOROLAC TROMETHAMINE 30 MG/ML (IVP) VIAL IVP SCH (20:00)
[2017-05-13] MEDS: metroNIDAZOLE 500 MG INJ 100 ML IV SCH (20:44)
[2017-05-13] MEDS: SODIUM CHLORIDE 0.9% FLUSH 10 ML FLUSH IV FLUSH SCH (20:45)
[2017-05-14] VITALS (12 sets, daily range): BP systolic 107–138; BP diastolic 71–83; PULSE 78–96; RESP 16–20; TEMP 98.1–98.8; O2SAT 95–96
[2017-05-14] MEDS: KETOROLAC TROMETHAMINE 30 MG/ML (IVP) VIAL IVP SCH ×3 (01:12→14:23)
[2017-05-14] MEDS: oxyCODONE/ACETAMINOPHEN 5 MG/325 MG TAB PO PRN (04:34)
[2017-05-14] MEDS: D5-1/2 NS + KCL 20 MEQ INJ 1,000 ML IV SCH ×2 (04:35→18:25)
[2017-05-14] MEDS: metroNIDAZOLE 500 MG INJ 100 ML IV SCH ×3 (04:35→20:01)
[2017-05-14 05:57] LABS: HEMATOCRIT 38.9 % (35.0-46.0); HEMOGLOBIN 13.9 GM/DL (11.6-15.3); MEAN CELL VOLUME 93.9 FL (80.0-100.0); MEAN CORPUSCULAR HEMOGLOBIN 33.5 PG (27.0-34.0); MEAN CORPUSCULAR HGB CONC 35.7 % (32.0-36.0); MEAN PLATELET VOLUME 8.8 FL (7.0-11.0); PLATELET COUNT 270 TH/MM3 (150-450); RED BLOOD COUNT 4.14 MIL/MM3 (4.00-5.30); RED CELL DISTRIBUTION WIDTH 12.3 % (11.6-17.2); WHITE BLOOD COUNT 9.8 TH/MM3 (4.0-11.0)
[2017-05-14 06:24] LABS: BICARBONATE 22.7 MEQ/L (21.0-32.0); CALCIUM 8.7 MG/DL (8.5-10.1); CREATININE 0.89 MG/DL (0.50-1.00)
[2017-05-14 07:17] LABS: BANDS 6 % (0-6); LYMPHOCYTES 8 % (9-44); MONOCYTES 4 % (0-8); NEUTROPHIL # MANUAL DIFF 8.6 TH/MM3 (1.8-7.7); POLYS (SEG NEUTROPHILS) 82 % (16-70)
--- NOTE | 2017-05-14 08:45 | HHI.PR ---
Subjective . no new c/o, better pain control, slept ok, no vagianl bleeding or d/c Objective . afeb vss hgb 11 a&o x3, nad cta, rrr abdomen non-tender ext wnl Assessment/Plan . pod #1 doing well findings at surgery & steps taken reviewed q&a, she understands and is grateful for care provided cpm, iv antibiotics as inpatient, convert to po for outpatient x 7-10 days. Jesenia Leyva MD May 14, 2017 08:45
[2017-05-14] MEDS: PANTOPRAZOLE SOD 20 MG DELAYED RELEASE TAB PO SCH (08:46)
[2017-05-14] MEDS: amLODIPine BESYLATE 5 MG TAB PO SCH (08:47)
[2017-05-14] MEDS: SODIUM CHLORIDE 0.9% FLUSH 10 ML FLUSH IV FLUSH SCH ×2 (09:00→20:01)
[2017-05-14] MEDS ORDERED: LEVOFLOXACIN 500 MG PREMIX INJ 100 ML IV SCH (12:00)
[2017-05-14] MEDS: FLUTICASONE 100 MCG/VILANTEROL 25 MCG INHALER INH SCH (16:55)
[2017-05-14] MEDS: FLUTICASONE PROPIONATE 50 MCG/ACT 16 GM NASAL SPRAY NASAL SCH (16:55)
--- NOTE | 2017-05-14 21:43 | MP ---
cc: RENEE PURCELL M.D., JOSE R. MOLPUS,JERRY Lin MD DATE OF SURGERY 05/13/2017 PREOPERATIVE DIAGNOSIS Dehiscence of vaginal cuff. POSTOPERATIVE DIAGNOSIS Dehiscence of vaginal cuff. PROCEDURE Examination under anesthesia. Surgical repair of vaginal cuff. SURGEON Roly Leyva MD APPRAISER ART Craig first sampler ANESTHESIA General endotracheal anesthesia ESTIMATED BLOOD LOSS 30 mL HISTORY A 62-year-old female is approximately 5 1/2 weeks status post robotic-assisted laparoscopic hysterectomy bilateral salpingo-oophorectomy and extensive lysis of adhesions for endometrial cancer. She reported acute onset of pain and a sense of pelvic pressure during intense Valsalva to try to have a bowel movement yesterday morning and felt palpable fullness at the top of the vagina and presented to the emergency room for further evaluation. On exam by the emergency room physician (Dr. Asif) cuff separation was noted with loops of small bowel visible at the vaginal apex. She was kept in Trendelenburg position, moist sterile towels placed over the perineum. She was given antibiotics. IV fluids were started and she was prepared for surgery after being counseled and consented. FINDINGS On exam under anesthesia, there was a complete separation of the vaginal cuff. All of the Vicryl sutures had resolved as there were no residual sutures detected. The edges of the cuff showed superficial granulation tissue. There were a couple of loops of small bowel visible above the vaginal apex, but without any notable adhesions as they were easily reduced with Trendelenburg and general anesthesia and then no other abnormality detected. There was minimal bleeding. PROCEDURE IN DETAIL She was taken to the operating room placed in dorsal lithotomy position after general endotracheal anesthesia was administered, and kept in Trendelenburg position. she was intubated while on her stretcher in Trendelenburg position and was moved to the operating room still in Trendelenburg position and placed in lithotomy position. Preliminary and digital exam confirmed that the loops of bowel had retracted so the vaginal area was prepped with Betadine and she was prepped and draped in sterile fashion after a time-out was undertaken where she was identified by sight recognition and hospital ID bracelet and proposed procedure was reviewed and confirmed. With exam, additional Betadine prep was used around the edge of the vaginal cuff and then sharp dissection was used to remove the granulation tissue circumferentially to cut back to tissue that was bleeding around all edges of the vaginal cuff. The granulation tissue was discarded. The vaginal cuff was then closed with 0 PDS delayed absorbable sutures in a [id number]-mg-delkr fashion using Allis clamps to isolate the corners of the cuff. There were full-thickness rxmihf-pg-isewa closures were placed at the vaginal corners and then the cuff was closed in an interrupted stepwise fashion using 0 PDS sutures until the entire cuff was reapproximated and secured. Now each of the sutures were tied securely with multiple knots. The vagina was inspected, was irrigated again copiously. There was complete hemostasis, excellent reapproximation and support of the vaginal cuff. There were no remaining foreign objects in the vagina. Preliminary and final counts were correct. She was returned to dorsal supine position and was pending reversal of anesthesia when I left the operating room to precede her to the Post Anesthesia Care Unit. MD KALI Madrigal/ /6:44 AM /9:23 PM
[2017-05-15 00:09] VITALS: BP 146/92; PULSE 87; RESP 18; TEMP 98.6; O2SAT 96
[2017-05-15] MEDS: oxyCODONE/ACETAMINOPHEN 5 MG/325 MG TAB PO PRN (01:52)
[2017-05-15] MEDS: D5-1/2 NS + KCL 20 MEQ INJ 1,000 ML IV SCH (01:53)
[2017-05-15 04:27] VITALS: BP 138/89; PULSE 81; RESP 17; TEMP 98.8; O2SAT 95
[2017-05-15] MEDS: metroNIDAZOLE 500 MG INJ 100 ML IV SCH (04:29)
[2017-05-15] MEDS ORDERED: METR-1 PO (07:53)
[2017-05-15] MEDS ORDERED: LEVA500T33 PO (07:54)
[2017-05-15] MEDS ORDERED: MIRA3350 PO (07:56)
[2017-05-15 08:30] VITALS: BP 144/89; PULSE 89; RESP 18; TEMP 98.4; O2SAT 94
[2017-05-15] MEDS: FLUTICASONE 100 MCG/VILANTEROL 25 MCG INHALER INH SCH (08:45)
[2017-05-15] MEDS: PANTOPRAZOLE SOD 20 MG DELAYED RELEASE TAB PO SCH (08:45)
[2017-05-15] MEDS: FLUTICASONE PROPIONATE 50 MCG/ACT 16 GM NASAL SPRAY NASAL SCH (08:45)
[2017-05-15] MEDS: amLODIPine BESYLATE 5 MG TAB PO SCH (08:46)
[2017-05-15] MEDS: SODIUM CHLORIDE 0.9% FLUSH 10 ML FLUSH IV FLUSH SCH (08:46)
--- NOTE | 2017-05-16 20:13 | MD ---
cc: RENEE PURCELL KELLY L. MD GIERBOLINI, JOSE R. M.D. ADMISSION DATE: 05/13/2017 DISCHARGE DATE: 05/15/2017 PROCEDURE: 03/13/2019, repair of vaginal cuff dehiscence. HOSPITAL COURSE: She did well in early postop. The first day uncomfortable still with pain limited mobility not yet voiding. On second postoperative day, she was less anxious, better pain control. Burch catheter removed. She is tolerating oral intake. The stomach was settled. Hemodynamically stable. OBJECTIVE: Ins and outs: 2885/5600. No new labs today. PHYSICAL EXAMINATION: Afebrile, pulse 81 to 95, respirations 18 to 20, blood pressure 131-146/81-92, O2 saturations greater than or equal to 95%. Alert and oriented x3 and in no acute distress. Lungs clear except for scant basilar rales. Cardiovascular is regular rate and rhythm. The abdomen is soft, nontender and nondistended. [employer]ER - no bleeding. Extremities nontender. ASSESSMENT: Postop day #2 Findings at surgery, steps taken, and precautions for minimizing additional risks and to maximize postoperative healing were discussed at length. She is to resume prior medications. She states that she definitely has pulmonary problems if she does not take her steroid inhaler. She understands that steroid may be a component that delays healing but it sounds as though it is medically necessary and cannot be adjusted at this time. She has been counseled specifically on limitation of her activities including work outs at the gym, to avoid the elliptical. Additionally, she has been counseled regarding diet and GI regimens. She was given prescription instructions for MiraLax whereas the instructions list once a day, if she needs to use it twice a day to maintain regular non-forced bowel movements that is encouraged. She is to minimize narcotic use. She is to drink plenty of fluids and to contact us should she have any questions or concerns. PLAN: I believe she will meet criteria for discharge to home today. She is to contact our office to schedule follow up in three weeks. She can otherwise resume her prior medications. Prescription for tramadol for pain as needed. Otherwise [id number] medications. Discussion ensued. Questions were answered. She expressed good understanding. MD DELIA Madrigal /7:55 AM /8:00 PM
== END 2017-05-15 11:08 | disposition home or self-care (01) | DRG 760 ==
LOC: NEPE 10:28 → NEDH 11:06 → HCIN 23:25
PROVIDERS: ADMIT Obstetrics & Gynecology Gynecologic Oncology; ATTEND Obstetrics & Gynecology Gynecologic Oncology
PROC: 0UQG7ZZ Repair Vagina, Via Natural or Artificial Opening (ICD-10-PCS; principal; 2017-05-13 16:17)
DX: N99.3 Prolapse of vaginal vault after hysterectomy (principal); T81.32XA Disruption of internal operation (surgical) wound, not elsewhere classified, initial encounter; J43.9 Emphysema, unspecified; I10 Essential (primary) hypertension; J45.909 Unspecified asthma, uncomplicated; K59.00 Constipation, unspecified; K21.9 Gastro-esophageal reflux disease without esophagitis; Z85.42 Personal history of malignant neoplasm of other parts of uterus; Z87.891 Personal history of nicotine dependence; Z88.1 Allergy status to other antibiotic agents
CPT/HCPCS: 74018; 80048; 85007; 85025; 85027; 85610; 86850; 86900; 86901; 86920; 94150; 99285; J0131; J1170; J1200; J1885; J1956; J2270; J2405; J3010; J3480